=== PATIENT | male | born 1990 | race Caucasian/White ===

== ENCOUNTER 2017-01-22 14:34 | Emergency (ER) | payer OTHER ==
[~2017-01-22] VITALS: Ht 175.3 cm; Wt 73.5 kg
[~2017-01-22 14:34] MED LIST: ACET325 PO; AZIT500 PO; CODGUAEL PO; CYCL10 PO; DOC250 PO; HYDACE5 PO; IBUP600 PO; IBUP800 PO; NAPR500 PO; OXYACE5T PO; PRIMATENE MIST; RXCODGUASY PO; RXOXYACE PO; [UNRECOGNIZED DRUG - OTHER]
[2017-01-22 15:18] LABS: BASOPHILS ABSOLUTE AUTO 0.04 K/mm3 (0.00-0.23); BASOPHILS PERCENT AUTO 0 % (0-2); EOSINOPHILS ABSOLUTE AUTO 0.09 K/mm3 (0.00-0.68); EOSINOPHILS PERCENT AUTO 1 % (0-6); Hematocrit 47.1 % (37.0-53.0); Hemoglobin 16.2 g/dL (13.5-17.5); IMMATURE GRAN ABSOLUTE AUTO 0.06 K/mm3 (0.00-0.10); IMMATURE GRAN PERCENT AUTO 1 % (0-1); LYMPHOCYTES ABSOLUTE AUTO 2.68 K/mm3 (0.84-5.20); LYMPHOCYTES PERCENT AUTO 25 % (21-46); MONOCYTES PERCENT AUTO 6 % (4-13); Mean Corpuscular HGB 30.3 pg (26.0-34.0); Mean Corpuscular HGB Conc 34.4 g/dL (31.5-36.5); Mean Corpuscular Volume 88 fL (80-100); Mean Platelet Volume 10.4 fL (9.1-12.4); NEUTROPHILS ABSOLUTE AUTO 7.36 K/mm3 (1.96-9.15); NEUTROPHILS PERCENT AUTO 68 % (41-73); Platelet Count 221 K/mm3 (150-400); RDW Coefficient Variation 13.6 % (11.7-14.2); RDW Standard Deviation 43.7 fL (35.1-46.3); Red Blood Cell Count 5.34 M/mm3 (4.30-5.90); White Blood Cell Count 10.83 K/mm3 (4.00-11.30)
[2017-01-22 15:24] LABS: Alanine Aminotransfer (ALT/SGP 22 U/L (12-78); Albumin, Blood 3.9 g/dL (3.4-5.0); Alk Phos 122 U/L (50-136); Anion Gap 5 mmol/L (6-16); Aspartate Aminotrans (AST/SGOT 18 U/L (12-37); Bilirubin, Total 0.4 mg/dL (0.1-1.0); Blood Urea Nitrogen 5 mg/dL (8-24); Bun/Creatinine Ratio 7.7 (12.0-20.0); CO2, Blood 30 mmol/L (21-32); Calcium, Blood 8.9 mg/dL (8.5-10.1); Chloride, Blood 107 mmol/L (98-108); Creatinine, Blood 0.65 mg/dL (0.60-1.20); Globulin, Blood 4.1 g/dL (2.2-4.0); Glomerular Filtration Rate >60 (60-); Glucose, Blood 86 mg/dL (70-99); Potassium, Blood 3.6 mmol/L (3.5-5.5); Sodium, Blood 142 mmol/L (136-145)
[2017-01-22] MEDS ORDERED: St. John's Wor300 MG PO (15:52)
[2017-01-22 16:37] LABS: Source, Urine Clean Catch
[2017-01-22 16:40] LABS: Bilirubin, Urine Neg (Neg); Blood, Urine Neg (Neg); Glucose Qualitative, Urine Neg (Neg); Ketones, Urine Neg (Neg); Leukocyte Esterase, Urine Neg (Neg); Nitrite, Urine Neg (Neg); Protein, Urine Neg (Neg); Urobilinogen, Urine NORM (Normal)
[2017-01-22 16:54] LABS: Appearance, Urine Clear (Clear); Color, Urine Yellow (P-Yellow)
[2017-01-22] MEDS ORDERED: NAPR500 PO (17:07)
[2017-01-22] MEDS ORDERED: Zofran Odt4 MG PO (17:07)
[2017-01-22] MEDS ORDERED: Norco 5-325 Ta1 EACH PO (17:07)
== END 2017-01-22 17:49 | disposition home or self-care (01) ==
LOC: ER 14:34
PROVIDERS: Emergency Medicine; Physician Assistant Medical
DX: R10.9 Unspecified abdominal pain (principal); F17.200 Nicotine dependence, unspecified, uncomplicated; Z90.49 Acquired absence of other specified parts of digestive tract; Z98.890 Other specified postprocedural states
CPT/HCPCS: 36415; 76770; 80053; 81003; 85025; 96374; 99284; J1885; J3360

== ENCOUNTER 2017-03-02 20:13 | Emergency (ER) | payer BC, OTHER ==
[~2017-03-02] VITALS: Ht 175.3 cm; Wt 72.6 kg
[~2017-03-02 20:13] MED LIST changes: +Norco 5-325 Ta1 EACH PO; +St. John's Wor300 MG PO; +Zofran Odt4 MG PO
[2017-03-02 21:11] LABS: BASOPHILS ABSOLUTE AUTO 0.02 K/mm3 (0.00-0.23); BASOPHILS PERCENT AUTO 0 % (0-2); EOSINOPHILS ABSOLUTE AUTO 0.06 K/mm3 (0.00-0.68); EOSINOPHILS PERCENT AUTO 1 % (0-6); Hematocrit 45.9 % (37.0-53.0); Hemoglobin 15.5 g/dL (13.5-17.5); IMMATURE GRAN ABSOLUTE AUTO 0.01 K/mm3 (0.00-0.10); IMMATURE GRAN PERCENT AUTO 0 % (0-1); LYMPHOCYTES ABSOLUTE AUTO 2.83 K/mm3 (0.84-5.20); LYMPHOCYTES PERCENT AUTO 30 % (21-46); MONOCYTES PERCENT AUTO 6 % (4-13); Mean Corpuscular HGB 30.6 pg (26.0-34.0); Mean Corpuscular HGB Conc 33.8 g/dL (31.5-36.5); Mean Corpuscular Volume 91 fL (80-100); NEUTROPHILS PERCENT AUTO 63 % (41-73); Platelet Count 222 K/mm3 (150-400); RDW Coefficient Variation 13.1 % (11.7-14.2); RDW Standard Deviation 43.3 fL (35.1-46.3); Red Blood Cell Count 5.07 M/mm3 (4.30-5.90); White Blood Cell Count 9.42 K/mm3 (4.00-11.30)
[2017-03-02 21:27] LABS: Alanine Aminotransfer (ALT/SGP 25 U/L (12-78); Albumin, Blood 4.1 g/dL (3.4-5.0); Alk Phos 105 U/L (50-136); Anion Gap 5 mmol/L (6-16); Aspartate Aminotrans (AST/SGOT 21 U/L (12-37); Bilirubin, Total 0.5 mg/dL (0.1-1.0); Blood Urea Nitrogen 8 mg/dL (8-24); Bun/Creatinine Ratio 11.1 (12.0-20.0); CO2, Blood 31 mmol/L (21-32); Chloride, Blood 105 mmol/L (98-108); Creatinine, Blood 0.72 mg/dL (0.60-1.20); Glomerular Filtration Rate >60 (60-); Glucose, Blood 93 mg/dL (70-99); Potassium, Blood 3.7 mmol/L (3.5-5.5); Sodium, Blood 141 mmol/L (136-145); Total Protein, Blood 8.1 g/dL (6.4-8.2)
[2017-03-02 22:22] LABS: Ethanol (Alcohol), Blood, Med <3 mg/dL; Free Thyroxine 1.16 ng/dL (0.70-1.60); Salicylate <1.7 mg/dL (2.8-20.0)
[2017-03-02 22:27] LABS: Triiodothyronine, Free 3.44 pg/mL (2.18-3.98)
[2017-03-02 22:30] LABS: Acetaminophen, Random <2.0 ug/mL (10.0-30.0)
[2017-03-02 22:42] LABS: Source, Urine Clean Catch
[2017-03-02 22:45] LABS: Bilirubin, Urine Neg (Neg); Blood, Urine 1+ (Neg); Glucose Qualitative, Urine Neg (Neg); Ketones, Urine 1+ (Neg); Leukocyte Esterase, Urine 1+ (Neg); Nitrite, Urine Neg (Neg); Protein, Urine 1+ (Neg); Specific Gravity, Urine 1.015 (1.003-1.022); Urobilinogen, Urine 1+ (Normal); pH, Urine 6.5 (5.0-8.0)
[2017-03-02 22:49] LABS: Appearance, Urine Clear (Clear); Color, Urine Amber (P-Yellow)
[2017-03-02 22:56] LABS: Bacteria Not Seen /hpf; Mucus Mod (0-Heavy); Squamous Epithelial Cells Not Seen /hpf (Few); U Amphetamine Screen Not Detected; U Barbituate Screen Not Detected; U Benzodiazapine Screen DETECTED; U Buprenorphine Screen Not Detected; U Cannabinoids Screen DETECTED; U Cocaine Screen Not Detected; U Methadone Screen Not Detected; U Methamphetamine Screen Not Detected; U Opiates Screen Not Detected; U Oxycodone Screen Not Detected; U Phencyclidine Screen Not Detected; U Propoxyphene Screen Not Detected; White Blood Cells, Urine 0-2 /hpf (0-5)
== END 2017-03-03 01:54 | disposition home or self-care (01) ==
LOC: ER 20:13
PROVIDERS: Emergency Medicine
DX: F32.9 Major depressive disorder, single episode, unspecified (principal); Z87.891 Personal history of nicotine dependence; Z90.49 Acquired absence of other specified parts of digestive tract
CPT/HCPCS: 36415; 51701; 70450; 71046; 80053; 81001; 84439; 84443; 84481; 85025; 93005; 93010; 99284; G0480; J7030

== ENCOUNTER 2018-03-09 05:55 | Emergency (ER) | payer BC, OTHER ==
[~2018-03-09] VITALS: Ht 175.3 cm; Wt 72.6 kg
[2018-03-09] MEDS ORDERED: PRED5 PO (06:55)
[2018-03-09] MEDS ORDERED: VENL25 PO (06:56)
[2018-03-09] MEDS ORDERED: KETO10 PO (07:21)
[2018-03-09] MEDS ORDERED: CYCL10 PO (07:21)
== END 2018-03-09 07:33 | disposition home or self-care (01) ==
LOC: ER 05:55
DX: M54.12 Radiculopathy, cervical region (principal); Z87.891 Personal history of nicotine dependence
CPT/HCPCS: 99283

== ENCOUNTER 2019-06-06 14:23 | Emergency (ER) | payer OTHER, BC ==
[~2019-06-06] VITALS: Ht 175.3 cm; Wt 80.7 kg
[~2019-06-06 14:23] MED LIST changes: +KETO10 PO; +PRED5 PO; +VENL25 PO
[2019-06-06] MEDS ORDERED: AZIT250 PO (16:04)
[2019-06-06] MEDS ORDERED: IBUP800 PO (16:04)
== END 2019-06-06 16:20 | disposition home or self-care (01) ==
LOC: ER 14:23
DX: M25.511 Pain in right shoulder (principal); R41.0 Disorientation, unspecified; R51 Headache; M54.9 Dorsalgia, unspecified; G89.29 Other chronic pain; J18.9 Pneumonia, unspecified organism; Z91.048 Other nonmedicinal substance allergy status; Z87.891 Personal history of nicotine dependence; V29.60XA Unspecified motorcycle rider injured in collision with unspecified motor vehicles in traffic accident, initial encounter
CPT/HCPCS: 71045; 73030; 99283-25

== ENCOUNTER 2020-03-16 11:29 | Emergency (ER) | payer OTHER ==
[~2020-03-16] VITALS: Ht 177.8 cm; Wt 78.5 kg
[~2020-03-16 11:29] MED LIST changes: +AZIT250 PO
[2020-03-16] MEDS ORDERED: VENL150ER PO (11:37)
[2020-03-16] MEDS ORDERED: Bupropion HCl150 M2 PO (11:37)
[2020-03-16] MEDS ORDERED: Valium5 MG PO (23:27)
== END 2020-03-16 14:30 | disposition left against medical advice (07) ==
LOC: ER 11:29
DX: S19.9XXA Unspecified injury of neck, initial encounter (principal); Z53.20 Procedure and treatment not carried out because of patient's decision for unspecified reasons; Z79.899 Other long term (current) drug therapy; W18.2XXA Fall in (into) shower or empty bathtub, initial encounter
CPT/HCPCS: 96374; 96375; 99283-25; J1885; J2405; J3010

== ENCOUNTER 2020-03-16 21:29 | Emergency (ER) | payer OTHER ==
[~2020-03-16] VITALS: Ht 177.8 cm; Wt 78.5 kg
[~2020-03-16 21:29] MED LIST changes: +Bupropion HCl150 M2 PO; +VENL150ER PO
[2020-03-16] MEDS ORDERED: Valium5 MG PO (23:27)
== END 2020-03-17 | disposition home or self-care (01) ==
LOC: ER 21:29
DX: M43.6 Torticollis (principal); Z79.899 Other long term (current) drug therapy; Z87.891 Personal history of nicotine dependence
CPT/HCPCS: 72125; 96374; 96375; 99283-25; A9270; J1885; J2405; J3010

== ENCOUNTER 2023-03-19 20:54 | Emergency (ER) | payer OTHER ==
[~2023-03-19] VITALS: Ht 175.3 cm; Wt 81.2 kg
[~2023-03-19 20:54] MED LIST changes: -LIDOCAINE1 EACH TOP; -Robaxin750 MG PO
[2023-03-19 21:01] VITALS: BP 142/76
[2023-03-19] MEDS ORDERED: LIDOCAINE1 EACH TOP (21:30)
[2023-03-19] MEDS ORDERED: Robaxin750 MG PO (21:30)
== END 2023-03-19 21:36 | disposition home or self-care (01) ==
LOC: ER 20:54
DX: S29.012A Strain of muscle and tendon of back wall of thorax, initial encounter (principal); M54.2 Cervicalgia; Z87.891 Personal history of nicotine dependence; Z79.899 Other long term (current) drug therapy; X58.XXXA Exposure to other specified factors, initial encounter
CPT/HCPCS: 96372; 99283-25; A9270; J1885

== ENCOUNTER → 2023-03-19 | Outpatient (CLI) | payer OTHER ==
[~2023-03-19] MED LIST changes: +LIDOCAINE1 EACH TOP; +Robaxin750 MG PO; +Valium5 MG PO
== END ==
LOC: LAB SHORT 11:26 → LAB 11:26
DX: N30.00 Acute cystitis without hematuria (principal)
CPT/HCPCS: 87077; 87086; 87186